=== PATIENT | female | born 1935 | race Caucasian/White ===

== ENCOUNTER 2017-05-04 11:26 | Inpatient (IN) | payer MEDICARE, OTHER ==
[~2017-05-04] VITALS: Ht 157.5 cm; Wt 77.6 kg
[~2017-05-04 11:26] MED LIST: ALEVE220 MG PO; CALCIUM-VITAMI1 EAC1 PO; COMPLETE M9 MG/15 ML PO; FISH OIL 1,0001 EAC5 PO; GLUCOPHAGE500 MG; GLUCOPHAGE500 MG PO; LOPRESSOR100 MG PO; LOVASTAT20 PO; NORVASC10 MG PO; OMEPRAZOLE 20 M20 M1 PO; PRADAXA150 MG PO; SKELAXIN 800 M800 M1 PO; TRAZODONE HCL100 MG PO; ULTRAM 50MG TAB50 MG PO; VASOTEC20 MG PO
[2017-05-04 11:31] VITALS: BP 126/63
[2017-05-04] MEDS ORDERED: LISINOPRIL5 MG PO (11:35)
[2017-05-04] MEDS ORDERED: ATORVASTATIN CA40 MG PO (11:36)
[2017-05-04 13:05] LABS: URINE BILIRUBIN NEGATIVE (Negative); URINE BLOOD NEGATIVE (Negative); URINE CLARITY CLEAR; URINE COLOR YELLOW; URINE GLUCOSE-RANDOM NEGATIVE (Negative); URINE KETONES NEGATIVE (Negative); URINE LEUKOCYTES-REFLEX NEGATIVE (Negative); URINE NITRITE-REFLEX NEGATIVE (Negative); URINE PROTEIN NEGATIVE (Negative); URINE UROBILINOGEN 0.2 E.U./dl (0.2-1.0)
[2017-05-04 13:15] LABS: HEMATOCRIT 32.8 % (37.0-47.0); HEMOGLOBIN 11.1 gm/dL (12.0-15.0); MCH 33.2 pg (26.0-34.0); MCHC 33.7 g/dL (28.0-37.0); MCV 98.5 fL (80.0-100.0); MPV 8.9 fl. (7.2-11.1); NUCLEATED RBCS 0 /100WBC; PLATELET COUNT* 247 thou/uL (150-400); RBC 3.33 mil/uL (4.20-5.00); RDW-CV 14.3 % (10.5-14.5); WBC 9.9 thou/uL (4.0-11.0)
[2017-05-04 13:23] LABS: CALCIUM 9.1 mg/dL (8.5-10.1); CREATININE 3.1 mg/dL (0.6-1.3); POTASSIUM 4.7 mmol/L (3.5-5.1)
[2017-05-04 13:28] LABS: ALBUMIN 2.6 g/dL (3.4-5.0); TOTAL BILIRUBIN 0.5 mg/dL (<0.1-1.0); TOTAL PROTEIN 6.8 g/dL (6.4-8.2)
[2017-05-04 13:31] LABS: ABSOLUTE LYMPHOCYTES 0.6 thou/uL (0.8-5.3); ABSOLUTE MONOCYTES 0.6 thou/uL (0.0-1.2); ABSOLUTE NEUTROPHILS 8.7 thou/uL (1.6-8.1); METAMYELOCYTES 1 %
[2017-05-04 13:32] LABS: PLATELET ESTIMATE ADEQUATE
[2017-05-04 13:35] LABS: BE -5.5 mmol/L (-2 to +3); PCO2 25.1 mmHg (35.0-45.0); PO2 90.3 mmHg (75.0-100.0); pH 7.448 (7.340-7.450)
[2017-05-04 14:35] VITALS: BP 100/63
[2017-05-04] MEDS ORDERED: LOPRESSOR100 M1 PO (14:44)
[2017-05-04] MEDS ORDERED: FISH OIL 1,001000 M2 PO (14:46)
--- NOTE | 2017-05-04 15:30 | NUR ---
PT ARRIVED FROM ER VIA CART. FAMILY AT BS. PT ORIENTED TO UNIT. CALL LIGHT WITHIN REACH. IV NOT PATENT AND RESTARTED IN RIGHT AC. PT DRINKING ORAL CONTRAST. UPDATED ON PLAN OF CARE. IVF INFUSING
[2017-05-04 16:00] VITALS: BP 125/64
[2017-05-05] VITALS: BP 85/52
[2017-05-05 03:48] VITALS: BP 98/49
[2017-05-05 04:09] LABS: CALCIUM 8.4 mg/dL (8.5-10.1); CREATININE 2.2 mg/dL (0.6-1.3); POTASSIUM 4.8 mmol/L (3.5-5.1)
[2017-05-05 04:20] LABS: ABSOLUTE EOSINOPHILS 0.1 thou/uL (0.0-0.7); ABSOLUTE LYMPHOCYTES 0.4 thou/uL (0.8-5.3); ABSOLUTE MONOCYTES 0.3 thou/uL (0.0-1.2); ABSOLUTE NEUTROPHILS 5.9 thou/uL (1.6-8.1); BASOPHILS 0.1 %; EOSINOPHILS 1.2 %; HEMOGLOBIN 9.5 gm/dL (12.0-15.0); LYMPHOCYTES 6.3 %; MCH 32.7 pg (26.0-34.0); MCHC 32.9 g/dL (28.0-37.0); MCV 99.4 fL (80.0-100.0); MONOCYTES 3.9 %; MPV 9.6 fl. (7.2-11.1); NUCLEATED RBCS 0 /100WBC; PLATELET COUNT* 244 thou/uL (150-400); POLYS 88.5 %; RBC 2.91 mil/uL (4.20-5.00); RDW-CV 14.3 % (10.5-14.5); WBC 6.6 thou/uL (4.0-11.0)
--- NOTE | 2017-05-05 06:19 | NUR ---
ASSESSMENT COMPLETE. PT SLEPT GOOD MOST OF THE NIGHT. PT DENIES NEED FOR PAIN MEDICATION. PT ON2L PER NC, SATS DROPPED TO 90% DURING THE NIGHT. PT GIVEN IV VANC, IV FLUIDS INFUSING IN RIGHT AC. PT IS FALL RISK, BED ALARM ON. PT IS UP WITH ONE ASSIST TO BSC. PT USES CALL LIGHT APPROPRIATELY. PT HAS BEEN AFEBRILE THROUGH THE NIGHT. SEE ASSESSMENT AND VITALS FOR OTHER DETAILS. CALL LIGHT WITHIN REACH, WILL CONTINUE TO MONITOR
[2017-05-05 08:00] VITALS: BP 98/54
--- NOTE | 2017-05-05 15:42 | NUR ---
CM SPOKE TO THE PATIENT TO DISCUSS HOME SITUATION, DISCHARGE PLANNING, AND TO INFORM OF THE ROLE OF CM. PATIENT ALERT, ORIENTED, AND INDEPENDENT WITH ADL'S. PATIENT RESIDES AT HOME ALONE. 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 PATIENT USES A WALKER AT HOME FOR MOBILITY. PATIENT HAS A HX OF HH, BUT COULD NOT RECALL THE NAME. PATIENT HAS A HX OF SNF AT [facility]. PATIENT PLANS TO RETURN HOME AT DISCHARGE. CM WILL REMAIN AVIALABLE TO ASSIST AND FOLLOW NEEDED.
--- NOTE | 2017-05-05 15:56 | NUR ---
SW met with pt and pt dtr and son to notarize DPOA/AD at request of pt to appoint her dtr and son to be agents for her healthcare decisions when needed. SW notarized pt signature and provided pt with original and copies of document.
[2017-05-05 19:50] VITALS: BP 121/64
[2017-05-06 04:47] LABS: ABSOLUTE BASOPHILS 0.1 thou/uL (0.0-0.2); ABSOLUTE EOSINOPHILS 0.3 thou/uL (0.0-0.7); ABSOLUTE LYMPHOCYTES 0.6 thou/uL (0.8-5.3); ABSOLUTE MONOCYTES 0.5 thou/uL (0.0-1.2); ABSOLUTE NEUTROPHILS 5.8 thou/uL (1.6-8.1); ALBUMIN 2.2 g/dL (3.4-5.0); BASOPHILS 1.7 %; CALCIUM 8.9 mg/dL (8.5-10.1); CREATININE 1.4 mg/dL (0.6-1.3); EOSINOPHILS 3.7 %; HEMATOCRIT 31.7 % (37.0-47.0); HEMOGLOBIN 10.5 gm/dL (12.0-15.0); LYMPHOCYTES 7.8 %; MCHC 33.2 g/dL (28.0-37.0); MCV 99.3 fL (80.0-100.0); MONOCYTES 6.9 %; MPV 9.2 fl. (7.2-11.1); NUCLEATED RBCS 0 /100WBC; PLATELET COUNT* 287 thou/uL (150-400); POLYS 79.9 %; POTASSIUM 4.8 mmol/L (3.5-5.1); RDW-CV 14.7 % (10.5-14.5); TOTAL BILIRUBIN 0.4 mg/dL (<0.1-1.0); TOTAL PROTEIN 5.9 g/dL (6.4-8.2); WBC 7.3 thou/uL (4.0-11.0)
--- NOTE | 2017-05-06 06:13 | NUR ---
ASSESSMENT COMPLETE. PT SLEPT MOST OF THE NIGHT WITHOUT CONCERNS. PT IS ON 2L FOR SHORTNESS OF AIR. PT SAT 94% ON ROOM AIR, BUT SOA WITH EXERTION. PT GIVEN PRN PAIN MEDICATION NEEDED WITH RELIEF REPORTED. PT HAS IV FLUIDS INFUSING. CELLULITIS TO LEFT GROIN/BUTTOCK. PT IS UP WITH ONE ASSIST TO BSC. PT IS FALL RISK, BED ALARM ON. SEE ASSESSMENT AND VITALS FOR OTHER DETAILS. CALL LIGHT WITHIN REACH, WILL CONTINUE TO MONITOR
[2017-05-06 08:00] VITALS: BP 116/59
--- NOTE | 2017-05-06 12:44 | CON ---
[address] [address] CONSULTATION Name: TREVOR GAMA Room: [address] M.R.#: [id number] Admission: 05/04/17 Attend Phys: Tone Bah MD Discharge: Date of : 33 Report #: [id number] THIS REPORT FOR: //name// CC: Tone Bah Julia Ordonez DATE OF SERVICE: 05/05/2017 ATTENDING PHYSICIAN: Tone Bah MD REASON FOR EVALUATION: Left inguinal abdominal wall inflammatory eruption, probable skin and soft tissue infection/cellulitis, possible abscess. HISTORY OF PRESENT ILLNESS: Chart reviewed, the patient examined. This is an 81 year old with a history of diabetes mellitus who over the course of the last couple of weeks had developed an expanding painful type red rash over her lower abdomen on the left primarily focused in the inguinal area. It was quite painful. She was evaluated as an outpatient, was diagnosed heavily with cellulitis, was treated with antibiotics and continued to progress; however. She denies significant systemic illness. No pulmonary or gastrointestinal related complaints. She was evaluated including imaging. It was clear that she had edematous changes consistent with inflammation. More recently ultrasound showed a focal area 4 x 1.2 of hypervascular possible fluid. Blood cultures are sterile thus far. She was empirically placed on piperacillin, tazobactam as well as vancomycin. ALLERGIES: None known. MEDICATIONS: Include atorvastatin, amlodipine, pantoprazole, trazodone, insulin and calcium carbonate. PAST MEDICAL HISTORY: Diabetes mellitus, hypertension, some renal insufficiency, previous right knee replacement, atrial fibrillation and bilateral cataracts. SOCIAL HISTORY: Nonsmoker and no ethanol. FAMILY HISTORY: Noncontributory. REVIEW OF SYSTEMS: As above. PHYSICAL EXAMINATION: GENERAL: She is alert, cooperative and appropriate. She is not overtly distressed and appeared generally well nourished. VITAL SIGNS: Temperature 98.1, pulse 87, respirations 16 and blood pressure 98/54. [place] [address] CONSULTATION Name: TREVOR GAMA Room: [address] IN [facility].#: [id number] Admission: 05/04/17 Attend Phys: Tone Bah MD Discharge: Date of : 33 Report #: [id number] SKIN: Warm, dry and no rashes. HEENT: Otherwise unremarkable. NECK: Supple. LUNGS: Clear to auscultation. HEART: Regular. I do not appreciate any murmur. ABDOMEN: Soft. There is an erythrodermic type eruption involving the left lower quadrant. It is quite tender. There may be a focal area of fluctuance along the inguinal site. I do not appreciate any bullous lesions. Some associated induration that is fairly tense over the most involved part. GENITOURINARY: Deferred. RECTAL: Deferred. LABORATORY DATA: Blood cultures sterile thus far. Prealbumin of 12.8. CBC: White count of 6.6, H and H 9.5 and 29.0 and platelets of 244. Ultrasound of the site without evidence of focal abscess, although there is reactive changes. Lactic acid 1.8, albumin 2.6, total protein 6.8. LFTs normal. Urinalysis is unremarkable. ASSESSMENT: Left lower abdominal wall inflammatory eruption consistent with skin and soft tissue infection may be developing early abscess. Continue empiric antimicrobial therapy and warm moist heat to the site. Surgical evaluation for debridement possibly. Discussed with the patient and her daughter. <ELECTRONICALLY SIGNED> By: Javier Quinonez MD 05/06/17 1244 [id number] Quinonez MD /nt
[2017-05-06 16:15] VITALS: BP 128/65
--- NOTE | 2017-05-06 16:16 | NUR ---
CONTINUE TO FOLLOW. PT ADMITS TO BEING WEAK AND STATES THAT SHE AND HER CHILDREN ARE INTERESTED IN HER GOING TO A SNF AT [place]. PT ASKED ABOUT [facility], MADE HER AWARE THEY DO NOT HAVE ANY BEDS AT THIS TIME. SHE THEN STATED SHE WOULD CONSIDER [facility] SHE IS FAMILIAR WITH THEM. CALLED AND FAXED REFERRAL TO [facility]. SHE STATED THEY WOULD NEED TO CHECK FINANCIALS BUT CLINICALLY THEY COULD ACCEPT PT. WILL UPDATE PT TOMORROW AND DISCUSS FURTHER
--- NOTE | 2017-05-06 17:15 | NUR ---
I have reviewed the documentation by SHAHIDA ELLIS from 05/06/17 to 05/06/17 and I concur with it. DC [place]
--- NOTE | 2017-05-06 18:37 | NUR ---
DAY 3 OF STAY. CELLULITIS TO ERNIE AREA RADIATING AROUND TO LEFT FLANK, PAINFUL TO TOUCH, DISCOMFORT MANAGED WITH ORAL MEDICATION. UP WITH SBA TO BSC. DOES HAVE NONPROD COUGH, STATES THAT SHE HAS HAD IT FOR QUITE A WHILE. VITAL SIGNS STABLE, NO ACUTE DISTRESS NOTED. NS @ 50 ML/HR INFUSING WITHOUT DIFF TO 20G RAC. MARCUS DIET WELL, HAD SMALL BM THIS AM. K PAD IN PLACE TO LEFT ABD. FAMILY AT BEDSIDE THIS AFTERNOON. DISCHARGE PLANNED FOR SKILLED SERVICES.
[2017-05-06 19:50] VITALS: BP 127/67
--- NOTE | 2017-05-07 05:33 | NUR ---
PT SLEPT AT INTERVALS DURING THE NIGHT, IV FLUIDS INFUSED, UP WITH ASSIST TO THE BSC, REMAINS ON 02 AT 2L/NC, SOA WHEN UP, PLEASANT, CALL LIGHT IN REACH, WILL CONTINUE TO MONITOR
[2017-05-07 08:00] VITALS: BP 139/65
--- NOTE | 2017-05-07 14:27 | NUR ---
SW received message that [facility] accepted pt referral for SNF. SW called [facility] and spoke with admissions and updated that pt was not ready to dc today but that SW would continue to follow and assist with finalizing safe dc plans.
--- NOTE | 2017-05-07 14:40 | NUR ---
WOUND CARE NOTE: CONSULT RECEIVED FOR ABDOMINAL WOUND. PATIENT ADMITS WITH CELLULITIS TO LOWER ABDOMEN FROM MONS PUBIS TO LATERAL LOWER ABDOMEN. ERYTHEMA HAD BEEN OUTLINE AND APPEARS TO BE IMPROVING. 2 PARTIAL THICKNESS ULCERATIONS, MOST LIKELY RUPTURED BLISTERS, TO THE LEFT LOWER QUADRANT, UNDER HER ABDOMINAL FOLD. NO DRAINAGE NOTED AT THIS TIME. THE MOST MEDIAL ULCERATION IS WITH ECCHYMOSIS. REDNESS, FIRM, AND EDEMA FROM MONS PUBIS TO LOWER LEFT QUADRANT. PATIENT STATED THAT THE FIRST ISSUE STARTED ON HER "INNER LIP". UPON INSPECTION OF THE LABIA MAJORA, THERE IS A FIRM NODULE. HOWEVER, THERE IS NO REDNESS AND NO PAIN THAT THE PATIENT COMPLAINED OF. EDUCATED PATIENT AND FAMILY IN ROOM ON THE IMPORTANCE OF KEEPING THE AREA CLEAN AND DRY. COMMUNICATED UNDERSTANDING. RECOMMEND TIGHT BLOOD GLUCOSE CONTROL ENCOURAGE GOOD NUTRITION AND HYDRATION FOR WOUND HEALING KEEP AREA CLEAN AND DRY, NO DRESSINGS AT THIS TIME FOR FEAR OF FURTHER IRRITATION FROM ADHESIVES. KEEP AREA FREE FROM FRICTION (PANTS BANDS/UNDERWEAR BANDS)
[2017-05-07 16:01] VITALS: BP 123/65
--- NOTE | 2017-05-07 19:29 | NUR ---
DAY 4 OF STAY. A/O X 4, UP WITH WALKER AND SBA TO TOILET, DISCOMFORT MANAGED WELL WITH ORAL MEDS. CONT TO HAVE NONPROD COUGH, LESSENED TODAY. REDNESS AND SWELLING LESSENED TODAY, WOUND CULTURES OBTAINED AND SENT. FAMILY AT BEDSIDE, MARCUS THERAPIES WELL. CONT POC.
[2017-05-07 20:30] VITALS: BP 139/80
[2017-05-08 04:30] LABS: HEMATOCRIT 28.9 % (37.0-47.0); HEMOGLOBIN 9.6 gm/dL (12.0-15.0); MCH 33.2 pg (26.0-34.0); MCHC 33.3 g/dL (28.0-37.0); MCV 99.8 fL (80.0-100.0); MPV 8.4 fl. (7.2-11.1); NUCLEATED RBCS 0 /100WBC; PLATELET COUNT* 329 thou/uL (150-400); RBC 2.89 mil/uL (4.20-5.00); RDW-CV 14.3 % (10.5-14.5); WBC 10.4 thou/uL (4.0-11.0)
[2017-05-08 04:49] LABS: CALCIUM 8.9 mg/dL (8.5-10.1); CREATININE 0.8 mg/dL (0.6-1.3); POTASSIUM 4.2 mmol/L (3.5-5.1); TOTAL BILIRUBIN 0.5 mg/dL (<0.1-1.0); TOTAL PROTEIN 5.6 g/dL (6.4-8.2)
--- NOTE | 2017-05-08 05:20 | NUR ---
PT SLEPT AT INTERVALS DURING THE NIGHT, NEW IV PLACED EARLIER, IV VANC GIVEN, NOW SALINE LOCKED, ROOM AIR TONIGHT, UP SBA TO THE BATHROOM WITH WALKER, NO STOOLS TONIGHT, PLEASANT, CALL LIGHT IN REACH, WILL CONTINUE TO MONITOR
[2017-05-08 05:43] LABS: ABSOLUTE EOSINOPHILS 0.2 thou/uL (0.0-0.7); ABSOLUTE LYMPHOCYTES 0.8 thou/uL (0.8-5.3); ABSOLUTE MONOCYTES 0.4 thou/uL (0.0-1.2); ABSOLUTE NEUTROPHILS 8.9 thou/uL (1.6-8.1); PLATELET ESTIMATE ADEQUATE; TOXIC GRANULATION 1+
[2017-05-08 05:44] LABS: ANISOCYTOSIS 1+; POIKILOCYTOSIS 1+
[2017-05-08 08:00] VITALS: BP 145/80
--- NOTE | 2017-05-08 11:20 | NUR ---
WOUND CARE NOTE: REASSESSMENT OF ABDOMINAL AREA. THE MOST MEDIAL WOUND HAS NOW OPENED AND IS DRAINING PURULENT, SEROSANGUINEOUS DRAINAGE FROM 2 AREAS IN THE LESION. AREA IS EXTREMELY TENDER TO TOUCH. ABLE TO EXPRESS MORE PURULENCE OUT OF THE AREA. PLACED WARM, MOIST COMPRESSES TO THE AREA. EDUCATED PATIENT ON FINDINGS. DISCUSSED WITH PATIENT'S RN ON THE WARM MOIST COMPRESSES AND TO EXCHANGE THEM WHEN THEY BECOME COOL. RECOMMEND INCISION AND DRAINAGE; ALLOWING FOR ALL PURULENCE/DEBRIS TO BE EVACUATED TO ASSIST WITH HEALING. TIGHT BLOOD GLUCOSE CONTROL ENCOURAGE GOOD NUTRITION/HYDRATION FOR WOUND HEALING.
--- NOTE | 2017-05-08 15:22 | NUR ---
[facility]LE followed up with [facility] who accepted pt and would be able to transport pt for SNF at 16:00 today. MIRACLE faxed orders and med list to [facility]. MIRACLE discussed with pt and pt dtrs aware and pt/family in agreement with plan.
[2017-05-08 15:25] VITALS: BP 145/80
[2017-05-08 15:32] VITALS: BP 145/80
[2017-05-08 17:00] VITALS: BP 145/80
--- NOTE | 2017-05-08 18:41 | NUR ---
I ASSUMED CARE OF THE PATIENT AT 0700. SHE IS ALERT AND ORIENTED X4. BED IS IN THE LOW LOCKED POSITION AND CALL LIGHT IS IN REACH. PATIENT NEEDS ARE MET AND PAIN IS MANAGED. HOURLY ROUNDING WAS COMPLETED. BLOOD SUGAR WAS CONTROLLED THROUGHOUT THE DAY. SURGERY ROUNDED ON THE PATIENT AND DECIDED TO DO AN INCISION/DRAINAGE AT THE BEDSIDE. SEE SURGICAL NOTES. PATIENT TOLERATED PROCEDURE WELL. SHE WAS TRANSPORTED BY [facility] AT 1700 TO [facility]. PATIENT'S FAMILY CALLED AND HOME MEDS WERE LEFT HERE. HER SON IS COMING TO GET THEM TO DELIVER THEM TO HER. SHE IS PROGRESSING TOWARD GOALS.
== END 2017-05-08 18:47 | DRG 579 ==
LOC: M.ERS 11:26 → M.TBA-ER 13:28 → M.3W 13:28
PROVIDERS: Personal Emergency Response Attendant; ADMIT Internal Medicine
PROC: 0J9C0ZZ Drainage of Pelvic Region Subcutaneous Tissue and Fascia, Open Approach (ICD-10-PCS; principal; 2017-05-08)
DX: L03.314 Cellulitis of groin (principal); I12.0 Hypertensive chronic kidney disease with stage 5 chronic kidney disease or end stage renal disease; R65.11 Systemic inflammatory response syndrome (SIRS) of non-infectious origin with acute organ dysfunction; E87.1 Hypo-osmolality and hyponatremia; N17.9 Acute kidney failure, unspecified; Z96.651 Presence of right artificial knee joint; I48.91 Unspecified atrial fibrillation; E11.22 Type 2 diabetes mellitus with diabetic chronic kidney disease; Z79.899 Other long term (current) drug therapy; N18.9 Chronic kidney disease, unspecified; M19.90 Unspecified osteoarthritis, unspecified site; L02.214 Cutaneous abscess of groin; Z90.710 Acquired absence of both cervix and uterus; Z98.42 Cataract extraction status, left eye; Z98.41 Cataract extraction status, right eye; Z87.891 Personal history of nicotine dependence

== ENCOUNTER → 2017-05-18 | Outpatient (CLI) | payer MEDICARE, OTHER ==
[~2017-05-18] MED LIST changes: +ATORVASTATIN CA40 MG PO; +FISH OIL 1,001000 M2 PO; +LISINOPRIL5 MG PO; +LOPRESSOR100 M1 PO
--- NOTE | 2017-05-19 07:49 | CON ---
[address] [address] CONSULTATION Name: TREVOR GAMA Room: [facility] ESTELA Velasquez.#: [id number] Admission: 05/18/17 Attend Phys: Verónica Zimmerman MD Discharge: Date of : 34 Report #: [id number] THIS REPORT FOR: //name// CC: Verónica Ordonez DATE OF SERVICE: 05/18/2017 ATTENDING PHYSICIAN: Dr. Verónica Zimmerman. Here for followup hospitalization, left inguinal skin and soft tissue infection with abscess with culture proven Staphylococcus aureus. She generally had been doing fairly well. She actually denies any particular complaints, very little localizing signs or symptoms nor has she had been systemically ill. She states she eats somewhat erratically, but that is her baseline. PHYSICAL EXAMINATION: She has 2 sites of ulcer along that inguinal area, some mild degree of inflammation noted. On probing, it is not clear that they communicate, although certainly would specifically favor that. Discussed with Dr. Zimmerman who did deroof the second site and he will see her back in a week, may need additional debridement. We will extend the antibiotics at least 1 additional week and see her back at that point. Continue wound care as prescribed. <ELECTRONICALLY SIGNED> By: Javier Quinonez MD 05/19/17 0749 1122 [id number] Quinonez MD /nt
== END ==
LOC: M.WC 09:00
DX: L02.211 Cutaneous abscess of abdominal wall (principal); E11.628 Type 2 diabetes mellitus with other skin complications; I10 Essential (primary) hypertension; I48.91 Unspecified atrial fibrillation; F32.9 Major depressive disorder, single episode, unspecified; Z90.710 Acquired absence of both cervix and uterus

== ENCOUNTER → 2017-05-25 | Outpatient (CLI) | payer MEDICARE, OTHER ==
--- NOTE | 2017-05-27 11:56 | CON ---
[address] [address] CONSULTATION Name: TREVOR GAMA Room: [facility] ESTELA VelasquezChinedu#: [id number] Admission: 05/25/17 Attend Phys: Verónica Zimmerman MD Discharge: Date of : 34 Report #: [id number] THIS REPORT FOR: //name// CC: Verónica Ordonez DATE OF SERVICE: 05/25/2017 ATTENDING PHYSICIAN: Dr. Verónica Zimmerman. HISTORY OF PRESENT ILLNESS: The patient returns in followup at the wound care center for ongoing care of left inguinal wounds as a result of subcutaneous skin and soft tissue infection with abscess post drainage. She has had isolation of Staphylococcus aureus. She has been on 3 weeks of systemic antibiotics. Clinically, she feels fine. She really has no significant pain or discomfort other than when it is being manipulated, probed, etc., but has not been systemically ill. On examination, apparently the connection between the two is no longer apparent based on probing. ASSESSMENT AND PLAN: Skin and soft tissue infection with abscess due to Staphylococcus aureus. At this point, I think it is reasonable to discontinue antibiotics. She has completed roughly 3 weeks of treatment and generally feels well. We will have to monitor expectantly. Informed her and her daughter that certainly in the next 7-14 days she can have a relapse, it should become apparent. She was instructed to call. She will continue to follow up with Dr. Zimmerman on a weekly basis and I will see her next week. <ELECTRONICALLY SIGNED> By: Javier Quinonez MD 05/27/17 1156 1216 [id number] Quinonez MD /nt
== END ==
LOC: M.WC 10:00
DX: L03.314 Cellulitis of groin (principal); E11.618 Type 2 diabetes mellitus with other diabetic arthropathy; I10 Essential (primary) hypertension; I48.91 Unspecified atrial fibrillation; F32.9 Major depressive disorder, single episode, unspecified; Z90.710 Acquired absence of both cervix and uterus

== ENCOUNTER → 2017-06-01 | Outpatient (CLI) | payer MEDICARE, OTHER ==
--- NOTE | 2017-06-02 07:49 | CON ---
[address] [address] CONSULTATION Name: TREVOR GAMA Room: [facility] ESTELA Giordano#: [id number] Admission: 06/01/17 Attend Phys: Verónica Zimmerman MD Discharge: Date of : 34 Report #: [id number] THIS REPORT FOR: //name// CC: Verónica Ordonez DATE OF SERVICE: 06/01/2017 ATTENDING PHYSICIAN: Verónica Zimmerman MD. HISTORY OF PRESENT ILLNESS: The patient returned today in followup at the wound care center, has ulcers involving the left inguinal site, previous skin and soft tissue infection with abscess due to Staph aureus. She had completed roughly 3 weeks of therapy. This is a combination of initially in the hospital of follow up with enteral therapy x 2 weeks. She completed that course 1 week ago. Clinically, she has been feeling okay. Denies any systemic illness. Overall, has less pain, discomfort associated with the site. On evaluation, there is decreased intensity of the inflammation. There is still some persistent lateral induration, although this has diminished overall. There is no probing that suggests communication between the 2 sites. IMPRESSION AND PLAN: Soft tissue infection. At this point, plan on extending the antimicrobial therapy will be available as needed. Discussed with Dr. Zimmerman. <ELECTRONICALLY SIGNED> By: Javier Quinonez MD 06/02/17 0749 [id number] Quinonez MD /klever
== END ==
LOC: M.WC 00:54
DX: L02.211 Cutaneous abscess of abdominal wall (principal); E11.618 Type 2 diabetes mellitus with other diabetic arthropathy; I10 Essential (primary) hypertension; I48.91 Unspecified atrial fibrillation; F32.9 Major depressive disorder, single episode, unspecified; Z90.710 Acquired absence of both cervix and uterus

== ENCOUNTER → 2017-06-08 | Outpatient (CLI) | payer MEDICARE, OTHER | LOC: M.WC 01:52 | DX: L02.211 Cutaneous abscess of abdominal wall (principal); E11.628 Type 2 diabetes mellitus with other skin complications; I10 Essential (primary) hypertension; I48.91 Unspecified atrial fibrillation; F32.9 Major depressive disorder, single episode, unspecified; Z90.710 Acquired absence of both cervix and uterus ==

== ENCOUNTER → 2017-06-15 | Outpatient (CLI) | payer MEDICARE, OTHER | LOC: M.WC 01:56 | DX: L02.211 Cutaneous abscess of abdominal wall (principal); E11.628 Type 2 diabetes mellitus with other skin complications; I10 Essential (primary) hypertension; I48.91 Unspecified atrial fibrillation; F32.9 Major depressive disorder, single episode, unspecified; Z90.710 Acquired absence of both cervix and uterus ==

== ENCOUNTER → 2017-06-22 | Outpatient (CLI) | payer MEDICARE, OTHER | LOC: M.WC 00:08 | DX: L02.211 Cutaneous abscess of abdominal wall (principal); L03.314 Cellulitis of groin; E11.9 Type 2 diabetes mellitus without complications; I10 Essential (primary) hypertension; I48.91 Unspecified atrial fibrillation; F32.9 Major depressive disorder, single episode, unspecified; Z90.710 Acquired absence of both cervix and uterus ==

== ENCOUNTER → 2017-06-29 | Outpatient (CLI) | payer MEDICARE, OTHER | LOC: M.WC 04:54 | DX: L03.314 Cellulitis of groin (principal); E11.628 Type 2 diabetes mellitus with other skin complications; I10 Essential (primary) hypertension; I48.91 Unspecified atrial fibrillation; F32.9 Major depressive disorder, single episode, unspecified; Z90.710 Acquired absence of both cervix and uterus ==

== ENCOUNTER → 2020-01-30 | Outpatient (CLI) | payer MEDICARE, OTHER ==
--- NOTE | 2020-01-30 13:00 | 2DMMODE ---
[place] [address] 2 D/M-MODE ECHOCARDIOGRAM Name: TREVOR GAMA [facility]: [facility]#: [id number] Admission: 01/30/20 Attend Phys: Fran Pardo MD Discharge: Date of : 33 Date of Service: 01/30/20 1300 Report #: [id number] THIS REPORT FOR: cc: Julia Ordonez Linda J. DO Holkins,Arben Rankin MD [facility] ~ APPROVED REPORT Study performed: 01/30/2020 11:23:43 EXAM: Comprehensive 2D, Doppler, and color-flow Echocardiogram Patient Location: Out-Patient BSA: 1.67 HR: 78 bpm BP: 122/78 mmHg Other Information Study Quality: Good Indications Atrial Fibrillation 2D Dimensions IVSd: 11.65 (7-11mm) LVOT Diam: 20.28 (18-24mm) LVDd: 42.02 mm PWd: 11.38 (7-11mm) Ascending Ao: 27.91 (22-36mm) LVDs: 27.65 (25-40mm) Aortic Root: 34.04 mm Volumes Left Atrial Volume (Systole) LA ESV Index: 30.30 mL/m2 Aortic Valve AoV Peak Shad.: 1.30 m/s AO Peak Gr.: 6.71 mmHg LVOT Max P.82 mmHg AO Mean Gr.: 4.05 mmHg LVOT Mean P.92 mmHg LVOT Max V: 0.67 m/s AO V2 VTI: 28.75 cm LVOT Mean V: 0.44 m/s ELISEO (VTI): 1.50 cm2 LVOT V1 VTI: 13.32 cm Mitral Valve MV Decel. Time: 122.50 [place] [address] 2 D/M-MODE ECHOCARDIOGRAM Name: MARCIAL GAMADAFNE Back Room: [facility]#: [id number] Admission: 01/30/20 Attend Phys: Fran Pardo MD Discharge: Date of : 33 Date of Service: 01/30/20 1300 Report #: [id number] MV PHT: 35.52 ms MVA (PHT): 6.19 cm2 TDI Medial E' Shad.: 0.09 m/s Lateral E' Shad.: 0.11 m/s Pulmonary Valve PV Peak Shad.: 0.78 m/s PV Peak Gr.: 2.45 mmHg Tricuspid Valve RAP Estimate: 5.00 mmHg TR Peak Gr.: 20.67 mmHg RVSP: 25.67 mmHg PA Pressure: 25.67 mmHg Left Ventricle The left ventricle is normal size. There is normal LV segmental wall motion. There is normal left ventricular wall thickness. Left ventricular systolic function is normal. The left ventricular ejection fraction is within the normal range. LVEF is 55%. This study is not technically sufficient to allow evaluation of the LV diastolic function due to atrial fibrillation. Right Ventricle The right ventricle is normal size. The right ventricular systolic function is normal. Atria Left atrium is mildly dilated. The right atrium size is normal. Aortic Valve Mild aortic valve sclerosis. Mild aortic regurgitation. There is no aortic valvular stenosis. Mitral Valve The mitral valve is normal in structure. Mild mitral regurgitation. No evidence of mitral valve stenosis. Tricuspid Valve The tricuspid valve is normal in structure. Mild tricuspid regurgitation. Pulmonic Valve The pulmonary valve is normal in structure. There is no pulmonic [place] [address] 2 D/M-MODE ECHOCARDIOGRAM Name: TREVOR GAMA Room: [facility] ESTEL[facility] DamonChineduMiguelChinedu#: [id number] Admission: 01/30/20 Attend Phys: Fran Pardo MD Discharge: Date of : 33 Date of Service: 01/30/20 [facility] Report #: [id number] Great Vessels The aortic root is normal in size. IVC is normal in size and collapses >50% with inspiration. Pericardium There is no pericardial effusion. <Conclusion> The left ventricle is normal size. There is normal left ventricular wall thickness. Left ventricular systolic function is normal. The left ventricular ejection fraction is within the normal range. LVEF is 55%. This study is not technically sufficient to allow evaluation of the LV diastolic function due to atrial fibrillation. The right ventricle is normal size. Left atrium is mildly dilated. The right atrium size is normal. Mild aortic valve sclerosis. Mild aortic regurgitation. There is no aortic valvular stenosis. The mitral valve is normal in structure. Mild mitral regurgitation. The tricuspid valve is normal in structure. Mild tricuspid regurgitation. IVC is normal in size and collapses >50% with inspiration. There is no pericardial effusion. There is normal LV segmental wall motion. <ELECTRONICALLY SIGNED> By: Arben Villa MD, FACC 01/30/20 1300 1300 99 Arben Villa MD, FACC /INF
== END ==
LOC: M.CRD 11:00
PROVIDERS: ATTEND Internal Medicine Cardiovascular Disease
DX: I08.3 Combined rheumatic disorders of mitral, aortic and tricuspid valves (principal); I48.21 Permanent atrial fibrillation

== ENCOUNTER → 2020-05-23 | Outpatient (CLI) | payer MEDICARE, OTHER | LOC: M.RAD 13:11 | PROVIDERS: ATTEND Family Medicine | DX: Z12.31 Encounter for screening mammogram for malignant neoplasm of breast (principal); M81.0 Age-related osteoporosis without current pathological fracture ==